=== PATIENT | female | born 1990 | race Caucasian/White ===

== ENCOUNTER 2017-08-16 08:21 | Day surgery (SDC) | payer BC ==
[2017-08-16] MEDS ORDERED: SOD CHLORIDE 0.9% 1,000 ML IV (09:00)
[2017-08-16] MEDS ORDERED: CEFAZOLIN 2 GM/50 ML (PMX) 50 ML IVPB (09:00)
[2017-08-16] MEDS ORDERED: LIDOCAINE 1% (MDV) 20 ML INJ (10:14)
[2017-08-16] MEDS ORDERED: ROPIVACAINE 0.5 % 30 ML VIAL (10:14)
[2017-08-16] MEDS ORDERED: MIDAZOLAM 1 MG/ML 2 ML INJ (10:14)
[2017-08-16] MEDS ORDERED: ROCURONIUM 50 MG INJ (10:14)
[2017-08-16] MEDS ORDERED: PROPOFOL 20 ML (10:14)
[2017-08-16] MEDS ORDERED: ONDANSETRON 4 MG INJ (11:23)
[2017-08-16] MEDS ORDERED: CEFAZOLIN 1 GM INJ (11:23)
[2017-08-16] MEDS ORDERED: FAMOTIDINE 20 MG INJ (11:23)
[2017-08-16] MEDS: BUPIVACAINE 0.25% (MPF) 30 ML INJ (11:39)
[2017-08-16] MEDS ORDERED: SUGAMMADEX SODIUM 200 MG/2 ML VIAL IV (11:49)
[2017-08-16] MEDS ORDERED: EPHEDrine 50 MG INJ (11:52)
[2017-08-16] MEDS ORDERED: PHENYLephrine (100 MCG/ML) 10ML SYG (11:52)
[2017-08-16] MEDS ORDERED: HYDROCODONE/APAP (5/325) TAB PO (12:00)
== END 2017-08-16 13:50 | disposition home or self-care (01) ==
LOC: SDS 08:21
DX: K80.20 Calculus of gallbladder without cholecystitis without obstruction (principal)
CPT/HCPCS: 47562; 88304